=== PATIENT | female | born 1980 | race Two or more races ===

== ENCOUNTER → 2018-01-01 17:06 | Outpatient (CLI) | payer OTHER | END | disposition home or self-care (01) | LOC: RAD 17:06 | DX: S90.911A Unspecified superficial injury of right ankle, initial encounter (principal) ==

== ENCOUNTER 2018-02-02 10:01 | Emergency (ER) | payer OTHER ==
[~2018-02-02] VITALS: Ht 172.7 cm; Wt 68.0 kg
== END 2018-02-02 12:26 | disposition home or self-care (01) ==
LOC: ER 10:01
DX: N39.0 Urinary tract infection, site not specified (principal)

== ENCOUNTER 2023-02-09 09:31 | Emergency (ER) | payer OTHER ==
[~2023-02-09] VITALS: Ht 172.7 cm; Wt 66.7 kg
[2023-02-09] MEDS ORDERED: LEXAPRO5 MG PO (10:05)
[2023-02-09] MEDS ORDERED: CLONAZEPAM0.5 MG PO (10:06)
[2023-02-09 11:31] LABS: PH,URINE 5.5 (5.0-8.0); URINE APPEARANCE Clear; URINE BILIRRUBIN Negative (NEGATIVE); URINE BLOOD Negative; URINE COLOR Dark Yellow; URINE GLUCOSE Negative (NEGATIVE); URINE LEUKOCYTE Negative; URINE NITRATE Negative; URINE PROTEIN Negative (NEGATIVE); URINE UROBILINOGEN 0.2 E.U./dl
[2023-02-09 11:36] LABS: URINE BACTERIA 411.8 uL (0.0-1933); URINE EPITHELIAL CELLS 24.8 uL (0.0-38.8); URINE WBC 8.1 uL (0.0-23.2)
[2023-02-09 11:40] LABS: URINE RBC 1.7 uL (0.0-20.8)
[2023-02-09 13:00] LABS: HEMATOCRIT 40.6 % (36.0-45.00); HEMOGLOBIN 13.7 g/dL (12.0-15.00); MEAN CELL VOLUME 91.7 fL (80.00-100.00); MEAN CORPUSCULAR HEMOGLOBIN 30.9 pg (27.00-32.0); MEAN CORPUSCULAR HGB CONC 33.7 g/dl (32.0-36.0); PLATELET COUNT 263 K/uL (150-450); RED BLOOD COUNT 4.43 M/uL (4.00-6.00)
[2023-02-09 13:54] LABS: CREATININE SERUM 0.8 mg/dL (0.55-1.02); GFR 77.92; POTASSIUM 4.12 mEq/L (3.5-5.1)
== END 2023-02-09 15:23 | disposition home or self-care (01) ==
LOC: ER 09:32
PROVIDERS: General Practice
DX: N30.90 Cystitis, unspecified without hematuria (principal); Z88.0 Allergy status to penicillin